=== PATIENT | female | born 1990 | race Caucasian/White ===

== ENCOUNTER 2020-02-19 13:37 | Emergency (ER) | payer OTHER ==
[2020-02-19 13:52] VITALS: BP 134/83; PULSE 79; TEMP 97.9; BMI 30.4
[2020-02-19 15:51] LABS: ARTERIAL BLD GAS O2 SATURATION 96.1 mmHg (95-98); ARTERIAL BLOOD GAS BASE EXCESS -0.6 mmol/L (-2-2); ARTERIAL BLOOD GAS PO2 83.5 mmHg (80-100); ARTERIAL BLOOD GAS pH 7.381 (7.350-7.450)
[2020-02-19 15:54] LABS: ALLENS TEST POSITIVE
[2020-02-19] MEDS ORDERED: ONDANSETRON *ODT* 4 MG TABLET SL ONE (16:36)
[2020-02-19] MEDS ORDERED: ONDANSETRON *ODT* 4 MG TABLET ONE (16:39)
== END 2020-02-19 17:02 | disposition home or self-care (01) ==
LOC: JERFT 13:37
DX: R51.9 Headache, unspecified (principal)
CPT/HCPCS: 36600; 82375; 82803; 99284-25; Q0162